=== PATIENT | female | born 2000 | race Caucasian/White ===

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

== ENCOUNTER 2020-06-08 05:59 | Inpatient (IN) ==
[2020-06-08] MEDS ORDERED: ONDANSETRON 4 MG TAB.RAPDIS PO PRN (06:23)
[2020-06-08] MEDS ORDERED: PENICILLIN G POTASSIUM 5 MILLIONUNT in DEXTROSE 5 % IN WATER 100 ML IV ONE ×2 (06:23)
[2020-06-08] MEDS ORDERED: OXYTOCIN/0.9 % SODIUM CHLORIDE 30 UNITS/500 ML BAG IV ONE (06:23)
[2020-06-08] MEDS ORDERED: MISOPROSTOL 100 MCG TABLET VG PRN (06:23)
[2020-06-08] MEDS: RINGER'S SOLUTION,LACTATED 1,000 ML IV ONE ×2 (06:50→13:48)
[2020-06-08 08:08] LABS: Cocaine Ur Negative (NEGATIVE); Urine Barbiturate Negative (NEGATIVE); Urine Benzodiazepines Negative (NEGATIVE); Urine Opiates Negative (NEGATIVE); Urine PCP Negative (NEGATIVE); Urine THC Negative (NEGATIVE)
--- NOTE | 2020-06-08 08:48 | HP ---
Chief Complaint - Chief Complaint Date of Service: 06/08/20 Time of Service: 08:36 Chief Complaint: elective induciton of labor History of Present Illness: 20 yo at 39 weeks admitted for elective induction of labor. This complicated by anemia, smoker, h/o PP hemorrhage, h/o shoulder dystocia, and h/o GHTN. 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, no transfusion History of gestational hypertension (Chronic) Anemia Onset Date: 03/16/20 Gestational hypertension Onset Date: ~01/2017 hemorrhage Onset Date: ~01/2017 Surgical History: Surgical History (Last Reviewed 06/08/20 @ 08:43 by Eliseo Virk DO) History of tonsillectomy and adenoidectomy [place] teeth extracted Onset Date: ~2013 Family History: Family History (Last Reviewed 06/08/20 @ 08:43 by Eliseo Virk DO) Mother Bipolar disorder Depression Father Hypertension Social History: (Last Reviewed 06/08/20 @ 08:43 by Eliseo Virk DO) Social History: Marital status: Single current occupational status: unemployed Highest education level completed: 12th grade, no diploma Service: No Tobacco: Smoking Status: Current every day smoker tobacco type: cigarettes Smoking cigarettes per day: 10 Alcohol: alcohol intake: never Substance Use: substance use type: does not use Dietary Habits: caffeine: Yes Review Of Systems (GEN) - Review of Systems Generalized/Overall Review: Present: No Symptoms Reported EENTM: Present: No Symptoms Reported Respiratory: Present: No Symptoms Reported Cardiac: Present: No Symptoms Reported Abdominal: Present: No Symptoms Reported Genitourinary: Present: No Symptoms Reported Musculoskeletal: Present: No Symptoms Reported Neurological: Present: No Symptoms Reported Skin: Present: No Symptoms Reported Endocrine: Present: No Symptoms Reported Allergies/Adverse Reactions: Allergies Allergy/AdvReac Type Severity Reaction Status Date / Time No Known Allergies Allergy Verified 06/01/20 09:22 Home Medications: HOME MEDICATIONS Vits96/Iron Fum/Folic [ S] 1 tab PO DAILY 05/16/17 [Last Taken 06/07/20 08:00] aspirin 81 mg tablet,delayed release 81 mg PO DAILY 12/20/19 [Last Taken 06/07/20 08:00] ferrous sulfate 325 mg (65 mg iron) tablet 325 mg PO DAILY #30 tab 03/16/20 [Last Taken 06/07/20 08:00] ascorbic acid (vitamin C) 500 mg capsule 1 mg PO DAILY 04/20/20 [Last Taken Unknown] Exam - Exam Vital Signs: Vital Signs - Last Taken Temp 36.7 C 06/08/20 06:10 Pulse 115 H 06/08/20 06:10 Resp 20 06/08/20 06:10 BP 115/73 06/08/20 06:10 Pulse Ox 98 06/08/20 06:10 Constitutional: Present: Alert, Oriented x3, Cooperative ENT Exam: Present: hearing grossly normal Neck: Present: non-tender, trachea midline. Absent: thyromegaly Breasts: Present: Exam deferred Respiratory: Present: lungs clear, no respiratory distress Cardiovascular/Chest: Present: normal peripheral pulses, regular rate, rhythm, no edema Abdomen: Present: Normal bowel sounds, soft, nontender, other - gravid /Rectal: Present: Other - 1/80/ballotable per nurse Extremity: Present: no pedal edema, no calf tenderness Skin Exam: Present: normal color, warm/dry, no cyanosis Neurologic: Present: alert, normal mood/affect, oriented x 3 Appearance: Present: appropriate appearance, appropriate insight Eye contact: Present: cooperative, good eye contact Thoughts: Present: normal thought pattern, normal mood /affect Diagnostic Studies: Laboratory Results Urine Opiates Screen Negative (NEGATIVE) 06/08/20 06:36 Barbiturate Screen Negative (NEGATIVE) 06/08/20 06:36 Ur Phencyclidine Scrn Negative (NEGATIVE) 06/08/20 06:36 Urine Amphetamine Negative (NEGATIVE) 06/08/20 06:36 U Benzodiazepines Scrn Negative (NEGATIVE) 06/08/20 06:36 Urine Cocaine Screen Negative (NEGATIVE) 06/08/20 06:36 Urine Marijuana (THC) Negative (NEGATIVE) 06/08/20 06:36 Assessment/Plan - Assessment/Plan (1) Elective induction of labor planned Assessment: Admit for Cytotec induction of labor. Epidural and pitocin PRN. 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
[2020-06-08] MEDS: PENICILLIN G POTASSIUM 2.5 MILLIONUNT in DEXTROSE 5 % IN WATER 100 ML IV SCH ×8 (10:52→22:39)
[2020-06-08] MEDS ORDERED: fentaNYL CITRATE/PF 50 MCG/ML AMPUL IT SCH (13:45)
[2020-06-08] MEDS ORDERED: BUPIVACAINE HCL/0.9 % NACL/PF 250 ML EP PRN (13:45)
[2020-06-08] MEDS ORDERED: ONDANSETRON HCL/PF 2 MG/ML VIAL IV PRN (13:45)
[2020-06-08] MEDS ORDERED: NALOXONE HCL 1 MG/1 ML SYRG IV PRN (13:45)
--- NOTE | 2020-06-08 14:35 | ANES ---
Anesthesia Procedure Note Procedure Note: ANESTHESIA PROCEDURE NOTE Date of Procedure: 06/08/2012 Time of procedure: 1420. Performed by: Jori Freire CRNA Color Dipper: None. Preprocedure diagnosis: Active labor. Post procedure diagnosis: Same. Procedure: Insertion of labor epidural. Indications: The patient is a 20-year-old multi para female in active labor requesting labor epidural for pain management. Findings: See below. Details of the procedure: The patient was placed in a sitting position. Back was prepped with DuraPrep. Patient was then draped in a sterile fashion. Lidocaine 1% was infiltrated to the skin and subcutaneous tissues at the level of the L3 4 interspace. The epidural space was identified using a 18-gauge Tuohy needle with [id number] technique. 20 mcg fentanyl was given intrathecally using a 27 ga. spinal needle. Epidural catheter was inserted without difficulty. Negative test dose was elicited using 5 mL of 1.5% preservative-free lidocaine plus epinephrine 1 200,000. The epidural catheter was then taped and secured in place. EBL: Minimal. Fluids: N/A. Specimen: N/A. Post procedure condition: The patient tolerated the procedure well. No complications were noted. Thank you for this consultation. Amezcua CRNA
--- NOTE | 2020-06-08 14:36 | ANES ---
Post Anesthesia Assessment - Vital Signs Vitals: Last Vital Signs Temp 37.1 C 06/08/20 14:31 Pulse 98 06/08/20 14:31 Resp 20 06/08/20 14:31 BP 127/68 06/08/20 14:31 Pulse Ox 98 06/08/20 14:31 Airway Patency: Normal - Mental Status Level Of Consciousness: Awake - Pain Level Pain Score: 2 - N/V Assessment Nausea/Vomiting Presence: None Dehydration:: No
--- NOTE | 2020-06-08 14:37 | ANES ---
Post Anesthesia Discharge - Transfer of Care Transfer of Care handoff given to nurse: Yes - Anesthesia Post Op Note Anesthesia Post Op Note: care transferred to OB RN
--- NOTE | 2020-06-08 14:37 | ANES ---
Anesthesia Pre Procedure Eval Vitals/Labs: Last Vital Signs Temp 37.1 C 06/08/20 14:31 Pulse 98 06/08/20 14:31 Resp 20 06/08/20 14:31 BP 127/68 06/08/20 14:31 Pulse Ox 98 06/08/20 14:31 HOME MEDICATIONS RX: Vits96/Iron Fum/Folic [ S] 1 tab PO DAILY 02/04/17 [Last Taken 06/07/20 08:00] aspirin 81 mg tablet,delayed release 81 mg PO DAILY 12/20/19 [Last Taken 06/07/20 08:00] ferrous sulfate 325 mg (65 mg iron) tablet 325 mg PO DAILY #30 tab 03/16/20 [Last Taken 06/07/20 08:00] ascorbic acid (vitamin C) 500 mg capsule 1 mg PO DAILY 04/20/20 [Last Taken Unknown] Allergies/Adverse Reactions: Allergies Allergy/AdvReac Type Severity Reaction Status Date / Time No Known Allergies Allergy Verified 06/01/20 09:22 - Planned Procedure Planned Procedure: elective induction Medication List Reviewed:: Yes Allergies Verified: Yes Medical History (Last Reviewed 06/08/20 @ 14:36 by Jona Freire CRNA) Tobacco abuse (Chronic) History of shoulder dystocia in prior (Chronic) 3969g with no immediate or alf adverse sequelae 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, no transfusion History of gestational hypertension (Chronic) Anemia Onset Date: 03/16/20 Gestational hypertension Onset Date: ~01/2017 hemorrhage Onset Date: ~01/2017 Surgical History (Last Reviewed 06/08/20 @ 14:36 by Jona Freire CRNA) History of tonsillectomy and adenoidectomy [place] teeth extracted Onset Date: ~2013 Family History (Last Reviewed 06/08/20 @ 14:36 by Jona Freire CRNA) Mother Bipolar disorder Depression Father Hypertension - Family Anesthesia History Family History:: no untoward family reactions to anesthesia - Airway/Neck/Teeth Within Normal Limits:: Yes Teeth Condition: intact Neck Exam: full range of motion Mallampatti Score: 1 Thyromental (T-M) distance: > 6 cm Mandibulo Hyoid distance: > 3 cm - Respiratory Respiratory Physical: lungs clear Smoking Status: Never smoker Sleep Apnea currently treated: No Sleep Apnea by current assessment: No - Cardiovascular Tolerate Activity: Good Heart Sounds: S1 & S2, Regular - Gastrointestinal NPO since: 1200 - Anesthesia Assessment and Plan ASA Class: PS, II, E Anesthesia Type Plan: Epidural Planned difficult intubation/equipment available: No
[2020-06-08] MEDS: DEXTROSE 5%-LACTATED RINGERS 1,000 ML IV PRN (19:53)
--- NOTE | 2020-06-08 19:54 | PN ---
Progess Note - Interim Date: 06/08/20 Time: 19:44 Narrative: 06/08/20 19:44 Patient comfortable with epidural Vital signs stable. Pitocin at 6 mu/min. FHT: 120 baseline, reassuring contractions q 2-4 min Cervix: 7/90/-2, AROM-clear at 1216 Impression: Intrauterine at 39 weeks elective induction of labor. GBS positive-status post 4 doses of IV penicillin. Plan: Continue present plan
[2020-06-09] MEDS: PENICILLIN G POTASSIUM 2.5 MILLIONUNT in DEXTROSE 5 % IN WATER 100 ML IV SCH ×2 (02:57)
--- NOTE | 2020-06-09 03:31 | PN ---
Progess Note - Interim Date: 06/09/20 Time: 03:26 Narrative: 06/09/20 03:26 Patient comfortable with epidural Vital signs stable. She had 1 elevated temperature to 38.3, but few minutes later was back to normal. Pitocin at 16 mu/min. FHT: 130 baseline, reassuring contractions q 3-4 min Cervix: Complete/0. Patient had a trial pushed for approximately 1 hour with no descent Impression: Intrauterine at 39-1/7 weeks induction of labor. GBS positive-status post 6 doses of IV penicillin. Fetus feels asynclitic Plan: We will try a couple different position changes and begin pushing once again.
[2020-06-09] MEDS: DEXTROSE 5%-LACTATED RINGERS 1,000 ML IV PRN (03:50)
[2020-06-09] MEDS ORDERED: OXYTOCIN/0.9 % SODIUM CHLORIDE 30 UNITS/500 ML BAG IV ONE (05:44)
[2020-06-09] MEDS ORDERED: GLYCERIN/WITCH HAZEL LEAF 40 APPL BOX TP PRN (05:44)
[2020-06-09] MEDS ORDERED: BENZOCAINE/MENTHOL 81 SPRAY CAN TP PRN (05:44)
[2020-06-09] MEDS ORDERED: BISACODYL 10 MG SUPP.RECT RC PRN (05:44)
[2020-06-09] MEDS ORDERED: HYDROCORTISONE 30 APPL TUBE TP PRN (05:44)
[2020-06-09] MEDS ORDERED: SENNOSIDES 8.6 MG TABLET PO PRN (05:44)
[2020-06-09] MEDS ORDERED: IBUPROFEN 800 MG TABLET PO PRN (05:44)
--- NOTE | 2020-06-09 05:47 | OR ---
Operative Report - Dictated Report Narrative: Spontaneous vaginal delivery of viable male born at 0525 on 06/09/2020 with Apgars 8 and 9, weighing 3865 g in KATIE position. Cord clamping delayed approximately 1 minute Placenta delivered complete, intact, with three vessel cord Estimated blood loss: Less than 50 ml Anesthesia: Epidural Lacerations: None History for MU History for Definition: * The number of deliveries resulting in a live the patient experienced prior to current hospitalization * The previous delivery of live twins or any live multiple gestation is considered one live event. *If primagravida or nulliparous is documented select zero for the number of previous live births. Live Events: Live Events: 1
[2020-06-09] MEDS: IBUPROFEN 800 MG TABLET PO PRN ×2 (06:12→16:24)
[2020-06-09] MEDS: oxyCODONE HCL/ACETAMINOPHEN 1 TAB TABLET PO PRN ×4 (06:12→19:23)
[2020-06-09] MEDS: PRENATAL VITS96/IRON FUM/FOLIC 1 TAB TABLET PO SCH (10:33)
[2020-06-09] MEDS: FERROUS SULFATE 325 MG TABLET PO SCH (10:33)
[2020-06-09] MEDS: DOCUSATE SODIUM 100 MG CAPSULE PO SCH ×2 (10:33→20:32)
[2020-06-09] MEDS: ASCORBIC ACID 500 MG TABLET PO SCH (10:33)
[2020-06-10] MEDS: IBUPROFEN 800 MG TABLET PO PRN (00:32)
[2020-06-10] MEDS: oxyCODONE HCL/ACETAMINOPHEN 1 TAB TABLET PO PRN ×2 (00:32→07:50)
[2020-06-10] MEDS: PRENATAL VITS96/IRON FUM/FOLIC 1 TAB TABLET PO SCH (08:03)
[2020-06-10] MEDS: ASCORBIC ACID 500 MG TABLET PO SCH (08:03)
[2020-06-10] MEDS: FERROUS SULFATE 325 MG TABLET PO SCH (08:03)
[2020-06-10] MEDS: DOCUSATE SODIUM 100 MG CAPSULE PO SCH (08:03)
[2020-06-10 08:29] VITALS: BP 123/79
--- NOTE | 2020-06-10 12:24 | PN ---
Subjective - Date and Time Seen Date: 06/10/20 Time: 12:23 Objective - Vitals Vitals: Last Vital Signs Temp 36.7 C 06/10/20 07:34 Pulse 73 06/10/20 07:34 Resp 20 06/10/20 07:34 BP 123/79 06/10/20 07:34 Pulse Ox 97 06/10/20 07:34 Patient denies complaints. Bottlefeeding. Lochia wnl abdomen - soft, nontender Uterus -firm, at umbilicus - 1 No calf tenderness Impression: day #1 - s/p spontaneous vaginal delivery. Desires early discharge. Plan: Continue routine care. Routine discharge instructions. 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
== END 2020-06-10 12:25 | disposition home or self-care (01) | DRG 807 ==
LOC: OB 05:59
PROVIDERS: ADMIT Obstetrics & Gynecology; ATTEND Obstetrics & Gynecology